=== PATIENT | male | born 1960 | race Caucasian/White ===

== ENCOUNTER 2019-07-09 19:58 | Emergency (ER) | payer SELFPAY ==
[2019-07-09] MEDS ORDERED: ONDANSETRON 4 MG TAB.RAPDIS PO ONE (20:18)
[2019-07-09] MEDS ORDERED: ONDANSETRON HCL INJ/PF 4 MG/2 ML SDV IV ONE (20:22)
--- NOTE | 2019-07-09 20:24 | ER Document Report ---
ED Medical Screen (RME) - General Chief Complaint: Headache Stated Complaint: UNSTEADINESS,HEADACHE Time Seen by Provider: 07/09/19 20:15 - HPI Notes: 07/09/19 20:19 59-year-old male type II ABDs presents emergency room by private car for complaints of dizziness, lightheadedness, vomiting. Patient is insulin- dependent and has been giving himself insulin however has not been checking his blood sugars. He states "my sugar is either really high or really low". Patient is not checked in well over 3 months. Denies any chest pain, shortness of breath, diarrhea, abdominal pain. Vomiting to started today. Has not been eating or drinking much today due to nausea. Patient goes to [facility]. Patient is a poor historian I have greeted and performed a rapid initial assessment of this patient. A comprehensive ED assessment and evaluation of the patient, analysis of test results and completion of the medical decision making process will be conducted by additional ED providers. PHYSICAL EXAMINATION: GENERAL: Well-appearing, well-nourished and in mild distress HEAD: Atraumatic, normocephalic. CV: s1, s2 regular LUNGS: No respiratory distress SKIN: Warm, Dry, normal turgor, no rashes or lesions noted. - Related Data Allergies/Adverse Reactions: No Known Allergies Allergy (Unverified 07/09/19 20:13) Physical Exam - Vital signs Vitals: Temp Pulse Resp BP Pulse Ox 97.9 F 102 H 20 146/87 H 98 07/09/19 20:09 07/09/19 20:09 07/09/19 20:09 07/09/19 20:09 07/09/19 20:09 Course - Vital Signs Vital signs: Temp Pulse Resp BP Pulse Ox 97.9 F 102 H 20 146/87 H 98 07/09/19 20:09 07/09/19 20:09 07/09/19 20:09 07/09/19 20:09 07/09/19 20:09
[2019-07-09] MEDS ORDERED: NORMAL SALINE 1000 ML 1,000 ML IV ONE ×2 (20:37→21:38)
[2019-07-09 20:51] LABS: ABSOLUTE LYMPHOCYTES (AUTO) 1.4 10^3/uL (0.5-4.7); ABSOLUTE MONOCYTES (AUTO) 0.4 10^3/uL (0.1-1.4); ABSOLUTE NEUT (AUTO) 5.2 10^3/uL (1.7-8.2); BASOPHILS % (AUTO) 0.5 % (0-2); EOSINOPHILS % (AUTO) 0.4 % (0-6); HEMATOCRIT 42.5 % (37.9-51.0); HEMOGLOBIN 15.1 g/dL (13.5-17.0); LYMPHOCYTES % (AUTO) 20.1 % (13-45); MEAN CORPUSCULAR HEMOGLOBIN 29.4 pg (27.0-33.4); MEAN CORPUSCULAR HGB CONC 35.5 g/dL (32.0-36.0); MEAN CORPUSCULAR VOLUME 83 fl (80-97); MONOCYTES % (AUTO) 5.7 % (3-13); PLATELET COUNT 266 10^3/uL (150-450); RED BLOOD COUNT 5.13 10^6/uL (4.35-5.55); RED CELL DISTRIBUTION WIDTH 13.7 % (11.5-14.0); SEGMENTED NEUTROPHILS % (AUTO) 73.3 % (42-78); TOTAL CELLS COUNTED % (AUTO) 100 %; WHITE BLOOD COUNT 7.1 10^3/uL (4.0-10.5)
[2019-07-09] MEDS ORDERED: LORAZEPAM INJ 2 MG/1 ML VIAL IV ONE ×2 (20:51→21:20)
[2019-07-09 21:02] LABS: ALBUMIN 4.4 g/dL (3.5-5.0); ALKALINE PHOSPHATASE 133 U/L (38-126); ANION GAP 10 (5-19); ASPARTATE AMINO TRANSFERASE 21 U/L (17-59); BILIRUBIN,TOTAL 0.5 mg/dL (0.2-1.3); BLOOD UREA NITROGEN 24 mg/dL (7-20); CALCIUM 9.9 mg/dL (8.4-10.2); CARBON DIOXIDE 25 mmol/L (22-30); CHLORIDE 95 mmol/L (98-107); POTASSIUM 4.4 mmol/L (3.6-5.0); TOTAL PROTEIN 7.4 g/dL (6.3-8.2)
--- NOTE | 2019-07-09 21:04 | ER Document Report ---
Doctor's Note Notes: 07/09/19 21:00 2049-tech called out for help, pt having a grand mal seizure. pt transported to room 10 and 1mg of ativan given IVP. pt suctioned. HR 103. no history of seizure during initial interview and exam in triage. 07/09/19 21:03
[2019-07-09 21:11] LABS: GLUCOSE 419 mg/dL (75-110)
[2019-07-09 21:13] LABS: ALCOHOL < 10 mg/dL (NONE DETECTED)
--- NOTE | 2019-07-09 21:37 | EKG REPORT ---
SEVERITY:- NORMAL ECG - SINUS RHYTHM : Confirmed by: Tani Irene MD 09-Jul-2019 21:37:01
[2019-07-09] MEDS ORDERED: LEVETIRACETAM 1500 MG/NACL-ISO 1,500 MG/100 ML RTUPB IV ONE (21:39)
--- NOTE | 2019-07-09 21:39 | ER Document Report ---
Entered by JOMAR SAUER SCRIBE 07/09/[id number] Acting as scribe for:NICOLE SOLO DO ED General - General Chief Complaint: Vomiting Stated Complaint: UNSTEADINESS,HEADACHE Time Seen by Provider: 07/09/19 20:15 Primary Care Provider: JOE CELAYA MD [Primary Care Provider] - Follow up as needed Mode of Arrival: Ambulatory Information source: Patient, Relative - Mother via phone, Emergency Med Personnel Notes: This 59 year old male patient with a history of insulin-dependent type 2 diabetes presents to the ED today with complaints of dizziness, lightheadedness, and nausea/vomiting for the past x3-4 days. Patient states that he has had x3 episodes of emesis today. He reports that he has been administering insulin; however, he has not been checking his BGL for the past x3 months. Patient is a poor historian, so his PMHx is being relayed by the ED nurse via the patient's mother. Patient's mother reports a PMHx of chronic constipation, NE x5-6 years ago, and seizure when the patient was x15 years old; she was told by the PCP at that time that is was caused by cold water and states that the patient was actually paralyzed for a few days after that incident. 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 She notes that he takes insulin, metformin, and sleeping pills because "his mind won't shut down." She reports that the patient used to take blood pressure medications for HTN, but stopped after he became a vegetarian and lost weight. She reports a past surgical history of cholecystectomy and toe amputation due to diabetes. PCP is [facility]. At 2049 this evening, patient had a grand mal seizure in triage witnessed by a PCT and Eva Villarreal NP. Patient was wheeled to bed 10 and received 1 mg Ativan IVP. - Related Data Allergies/Adverse Reactions: No Known Allergies Allergy (Unverified 07/09/19 20:13) Home Medications: insulin, asa Past Medical History - General Information source: Relative - Mother via phone, Emergency Med Personnel - Social History Smoking Status: Former Smoker Cigarette use (# per day): No Chew tobacco use (# tins/day): Yes - <1tin per day Smoking Education Provided: No Frequency of alcohol use: None Drug Abuse: None Lives with: Family Family History: Reviewed & Not Pertinent Patient has suicidal ideation: No Patient has homicidal ideation: No - Past Medical History Cardiac Medical History: Reports: Hx Heart Attack - approximately x5-6 years ago, Hx Hypertension Neurological Medical History: Reports: Hx Seizures - x1 as a child, no meds Endocrine Medical History: Reports: Hx Diabetes Mellitus Type 2 - insulin- dependent Past Surgical History: Reports: Hx Cholecystectomy, Hx Orthopedic Surgery - Toe amputation Review of Systems - Review of Systems Constitutional: No symptoms reported EENT: No symptoms reported Cardiovascular: See HPI, Dizziness, Lightheaded. denies: Chest pain Respiratory: See HPI. denies: Short of breath Gastrointestinal: See HPI, Nausea, Vomiting. denies: Abdominal pain Genitourinary: No symptoms reported Male Genitourinary: No symptoms reported Musculoskeletal: No symptoms reported Skin: No symptoms reported Hematologic/Lymphatic: No symptoms reported Neurological/Psychological: See HPI, Seizure -: Yes All other systems reviewed and negative Physical Exam - Vital signs Vitals: Temp Pulse Resp BP Pulse Ox 97.9 F 102 H 20 146/87 H 98 07/09/19 20:09 07/09/19 20:09 07/09/19 20:09 07/09/19 20:09 07/09/19 20:09 - General General appearance: Other - Sluggish. Appears to be clear emesis noted to right anterior chest wall - HEENT Head: Normocephalic, Atraumatic Eyes: Normal Pupils: Dilated - 2 mm and sluggish - Respiratory Respiratory status: No respiratory distress Chest status: Nontender Breath sounds: Normal Chest palpation: Normal - Cardiovascular Rhythm: Regular Heart sounds: Normal auscultation Murmur: No Friction rub: No Gallop: None auscultated - Abdominal Inspection: Normal Distension: No distension Bowel sounds: Normal Tenderness: Nontender - Abdomen soft Organomegaly: No organomegaly - Back Back: Normal, Nontender - Extremities General upper extremity: Normal inspection General lower extremity: Normal inspection - Neurological Neuro grossly intact: Yes Notes: Slow to respond. Answer questions slowly. - Psychological Associated symptoms: Other - Unable to assess due to patient't medical condition - Skin Skin Temperature: Warm Skin Moisture: Dry Skin Color: Normal Course - Re-evaluation Re-evalutation: 07/10/19 01:45 MDM Somewhat unusual gentleman has had an extended stay here. 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 He has not demonstrated deafness here as everyone wears masks due to covid 19. He came today due to mild generalized abd pain and nonbloody nonbilious emesis. No fever. In triage he had a generalized seizure and was treated with 1 mg ativan iv. He was slow to arouse from that and has had no further seizures here during an extended stay. History from mom is he did in fact have seizures in his past until age 15 or so. He has not had one since. We loaded him with keppra here. He is now alert and ambulates without difficulty and speaks clearly. He had mild abd pain earlier which was diffuse, but has resolved. Tolerates po without difficulty. Additionally he had a soft bowel movement here. Perhaps an enteritis explains the abd pain. In any event he does feel improved and we will discharge him to mom's care. - Vital Signs Vital signs: Temp Pulse Resp BP Pulse Ox 97.8 F 95 23 H 131/101 H 97 07/10/19 01:00 07/09/19 21:00 07/10/19 01:01 07/10/19 01:01 07/10/19 01:01 - Laboratory Result Diagrams: 07/09/19 20:33 07/09/19 20:33 Laboratory results interpreted by me: 07/09/19 07/09/19 07/09/19 20:30 20:33 21:40 VBG pH Sodium 130.0 L Chloride 95 L BUN 24 H Glucose 419 H* POC Glucose 392 H Alkaline Phosphatase 133 H Ammonia < 8.7 L Urine Protein Urine Glucose (UA) Urine Ketones Urine Blood 07/09/19 07/09/19 07/10/19 21:40 22:49 00:20 VBG pH 7.27 L Sodium Chloride BUN Glucose POC Glucose 382 H Alkaline Phosphatase Ammonia Urine Protein 30 H Urine Glucose (UA) >=500 H Urine Ketones 20 H Urine Blood SMALL H - Diagnostic Test Radiology reviewed: Reports reviewed - EKG Interpretation by Me EKG shows normal: Sinus rhythm Rate: Normal Rhythm: NSR - NSR Nl [place] [address] elevation or depression my interpretation. Discharge - Discharge Clinical Impression: Seizure Nausea and vomiting Qualifiers: Vomiting type: unspecified Vomiting Intractability: non-intractable Qualified Code(s): R11.2 - Nausea with vomiting, unspecified Condition: Good Disposition: HOME, SELF-CARE Instructions: Prescribed Antidiarrhea Medications ([facility]), Antinausea Medication ([facility]), Intravenous (IV) Fluids ([facility]), Vomiting ([facility]), Family Physicians / Practices Additional Instructions: Rest, clear liquids for 24 hours. See the primary doctor in follow up. Please return here for any problems or any concerns including but not limited to recurrent seizures, abdominal pain, fever or other problems or concerns. Referrals: JOE CELAYA MD [Primary Care Provider] - Follow up as needed I personally performed the services described in the documentation, reviewed and edited the documentation which was dictated to the scribe in my presence, and it accurately records my words and actions.
--- NOTE | 2019-07-09 21:48 | RADIOLOGY REPORT (SQ) ---
XR CHEST 1 VIEW EXAM DATE: 07/09/2019 8:18 PM CDT HISTORY: Dizziness, vomiting, PÉREZ. COMPARISON: None. FINDINGS: The heart size is within normal limits. There is no pulmonary vascular congestion. No consolidation, pleural effusion, or pneumothorax is seen. There are low lung volumes. IMPRESSION: No evidence of acute cardiopulmonary disease.
--- NOTE | 2019-07-09 21:49 | RADIOLOGY REPORT (SQ) ---
EXAM DESCRIPTION: CT HEAD WITHOUT IV CONTRAST COMPLETED DATE/TME: 07/09/2019 20:58 CLINICAL HISTORY: 59 years, Male, new onset seizure COMPARISON: None. TECHNIQUE: Noncontrast CT head was acquired. Coronal and sagittal reformations were created. Images stored on PACS. All CT scanners at this facility use dose modulation, iterative reconstruction, and/or weight based dosing when appropriate to reduce radiation dose to as low as reasonably achievable (ALARA). [facility]: Dose Right [facility]: CareDose [facility]: Dose Right [facility]: Teradose 4D [facility]: Singly LIMITATIONS: None. FINDINGS: Evaluation of the brain parenchyma reveals mild periventricular and patchy subcortical white matter low attenuation. Ventricles and sulcal spaces are enlarged. However, the ventricles are enlarged out of proportion to that of sulcal enlargement. No acute intracranial hemorrhage, mass effect, or extra-axial fluid is seen. Globes and orbits show no acute abnormality. Paranasal sinuses and mastoid air cells are clear. No depressed skull fractures. A tiny radiopaque density projects about the soft tissues of the left frontal scalp, suspicious for retained radiopaque foreign body. IMPRESSION: No acute intracranial hemorrhage or mass effect. Moderate ventricular enlargement, out of proportion to that of sulcal enlargement. Correlate for normal pressure hydrocephalus. Mild chronic microvascular ischemic change. TECHNICAL DOCUMENTATION: Quality ID # [id number]: Final reports with documentation of one or more dose reduction techniques (e.g., Automated exposure control, adjustment of the mA and/or kV according to patient size, use of iterative reconstruction technique) copyright 2011 [employer]- All Rights Reserved
[2019-07-09 21:52] LABS: VENOUS BLOOD BASE EXCESS -5.1 mmol/L; VENOUS BLOOD HCO3 22.2 mmol/L (20-32); VENOUS BLOOD PCO2 49.8 mmHg (35-63); VENOUS BLOOD PH 7.27 (7.30-7.42)
[2019-07-09] MEDS ORDERED: LEVETIRACETAM INJ/PF 500 MG/5 ML SDV IV ONE (22:20)
[2019-07-09] MEDS ORDERED: INSULIN REG, HUMAN 100 UNIT/ML 3 ML VIAL (PYX) IV ONE (22:23)
[2019-07-10] MEDS ORDERED: NORMAL SALINE 1000 ML 1,000 ML IV ONE (00:19)
[2019-07-10 01:24] LABS: APPEARANCE,URINE CLEAR; BILIRUBIN,URINE NEGATIVE (NEGATIVE); COLOR,URINE STRAW; GLUCOSE, URINE >=500 mg/dL (NEGATIVE); KETONES,URINE 20 mg/dL (NEGATIVE); LEUKOCYTE ESTERASE,URINE NEGATIVE (NEGATIVE); NITRITE,URINE NEGATIVE (NEGATIVE); PROTEIN,URINE 30 mg/dL (NEGATIVE); URINE SPECIFIC GRAVITY 1.028; UROBILINOGEN,URINE NEGATIVE mg/dL (<2.0)
[2019-07-10 01:43] LABS: URINE AMPHETAMINES SCREEN NEGATIVE; URINE BARBITURATES SCREEN NEGATIVE; URINE BENZODIAZEPINES SCREEN NEGATIVE; URINE COCAINE SCREEN NEGATIVE; URINE MARIJUANA (THC) SCREEN NEGATIVE; URINE METHADONE SCREEN NEGATIVE; URINE PHENCYCLIDINE SCREEN NEGATIVE
[2019-07-10 03:16] VITALS: BP 128/63
== END 2019-07-10 03:05 | disposition home or self-care (01) ==
LOC: ER 19:58
DX: R11.2 Nausea with vomiting, unspecified (principal); G40.409 Other generalized epilepsy and epileptic syndromes, not intractable, without status epilepticus; R10.84 Generalized abdominal pain; E11.9 Type 2 diabetes mellitus without complications; R42 Dizziness and giddiness; I10 Essential (primary) hypertension; I25.10 Atherosclerotic heart disease of native coronary artery without angina pectoris; I25.2 Old myocardial infarction; Z79.4 Long term (current) use of insulin; Z79.899 Other long term (current) drug therapy; Z72.0 Tobacco use
CPT/HCPCS: 93005; 99285; 96361; 96375; 96365; 36415; 82962; 80307 ×2; 82140; 83690; 83735; 85025; 80053; 81001; 84484; 82803; 71045; 70450; 93010; J2060; J1815; J2405; J7030 ×2; J1953